=== PATIENT | male | born 1975 | race Caucasian/White ===

== ENCOUNTER → 2024-12-24 | Outpatient (CLI) | payer OTHER ==
[~2024-12-24] MED LIST: COSYNTROPIN IV ONE; IMITREX50 MG PO; INFUSION IV ONE; LACTULOSE10 GM/151 PO; LEVOTHYROXINE200 MC2 PO; LYRICA100 M1 PO; METHADONE PO; MOTRIN800 MG PO; Methadone Hydro10 MG PO; VENT7GM INH; ZYRTEC ALLERGY10 MG PO
[2024-12-24 08:23] VITALS: BP 112/64
== END | disposition home or self-care (01) ==
LOC: INJECTION 07:57
PROVIDERS: ATTEND Internal Medicine Endocrinology, Diabetes & Metabolism
DX: R53.83 Other fatigue (principal); G43.909 Migraine, unspecified, not intractable, without status migrainosus; G40.909 Epilepsy, unspecified, not intractable, without status epilepticus; F17.210 Nicotine dependence, cigarettes, uncomplicated

== ENCOUNTER → 2025-02-15 | Outpatient (CLI) | payer OTHER ==
[~2025-02-15] MED LIST changes: -COSYNTROPIN IV ONE; -INFUSION IV ONE
[2025-02-15 17:51] LABS: FREE T4 1.57 ng/dl (0.89-1.76)
== END | disposition home or self-care (01) ==
LOC: LAB 17:14
PROVIDERS: Internal Medicine; ATTEND Family Medicine
DX: E06.3 Autoimmune thyroiditis (principal)

== ENCOUNTER → 2025-05-26 | Outpatient (CLI) | payer OTHER ==
[2025-05-26 13:07] LABS: BUN 11 mg/dl (9-23); FREE T4 1.35 ng/dl (0.89-1.76); LDL CHOLESTEROL 98 mg/dL (9-159)
[2025-05-26 13:08] LABS: SGPT/ALT < 7 U/L (5-49)
== END | disposition home or self-care (01) ==
LOC: LAB 12:04
PROVIDERS: Internal Medicine; ATTEND Internal Medicine Endocrinology, Diabetes & Metabolism
DX: E78.2 Mixed hyperlipidemia (principal)